=== PATIENT | male | born 1945 | race Caucasian/White ===

== ENCOUNTER 2024-11-01 06:03 | Day surgery (SDC) | payer MEDICARE, BC, SELFPAY ==
[2024-11-01] VITALS (9 sets, daily range): BP systolic 117–147; BP diastolic 46–82; PULSE 55–77; RESP 16–20; TEMP 35.9–36.6; O2SAT 92–98; BMI 25.2
[2024-11-01] MEDS: LACTATED RINGERS 1000 ML 1,000 ML 100 ML IV (07:10)
--- NOTE | 2024-11-01 07:38 | W.PM.H&PU ---
History & Physical Update History & Physical Update H&P Reviewed and patient assessed: No changes noted
--- NOTE | 2024-11-01 07:45 | P.GSOP_ITS ---
Operative Note Date of procedure: 11/01/24 Pre-op diagnosis: Left inguinal hernia Post-op diagnosis: Same Type of Procedure: Open left inguinal hernia repair with mesh Indications: The patient is a 79-year-old male who has noted a left inguinal hernia that has become increasingly painful over the past year. He has a history of an open rig ht inguinal hernia repair, done after prostatectomy in 2013. After discussion of options, he elected to proceed with repair. Procedure Description: After discussing the risks and benefits of the procedure, the patient signed informed consent.? The operative site was marked and the patient was brought to the operating room and placed on the operating table in supine position.? Care was taken to pad the patient's pressure points.?? The patient was then given sedation by anesthesia.?? The operative site was then prepped and draped in the usual sterile fashion.? A time-out was then performed. Local anesthetic was injected into the skin and subcutaneous tissue overlying the inguinal canal. An ilioinguinal nerve block was performed. An oblique incision was made over the external ring. Dissection was carried down into the subcutaneous tissue using cautery until the external oblique fascia was encountered. This was cleared off. The external ring was identified and after injection of more local anesthetic, the external oblique was incised using a knife. This was extended using the Metzenbaum scissors with care to dissect the underlying cord structures away from the fascia before cutting. The ileal inguinal nerve was dissected away from the cord carefully. The cord was cleared from the inside of the inguinal canal and looped with a Crystal drain. An indirect inguinal hernia was identified. The hernia sac was dissected off of the cord structures. The sac was then ligated and the proximal and reduced into the abdomen. A small cord lipoma was ligated and divided as well. This was discarded. A piece of polypropylene mesh was obtained and cut to size. This was secured to the pubic tubercle using to 0 Prolene on a double-armed suture. The Prolene was run along the inguinal ligament inferiorly and along the transversalis fascia superiorly, securing the tails around the cord and re- creating the internal ring. The ring was just large enough to permit my fingertip. The wound was examined for hemostasis which was found to be adequate. The external oblique fascia was then reapproximated with absorbable suture. The wound was then closed in layers including Aviva's fascia and the dermis with absorbable suture. The skin was then closed with a running subcuticular suture. Glue was then applied. Instrument, sponge, and needle counts were correct at the end of the case. The patient was woken and taken to the PACU in stable condition. The patient tolerated the procedure well ? Findings: Small cord lipoma and indirect inguinal hernia found Implants: Bard soft mesh Anesthesia: MAC Surgeon: Amber Kemp MD Estimated blood loss (mL): 5 Condition: stable Disposition: same day
[2024-11-01] MEDS: BUPIVACAINE 0.5% 30 ML INJECTION (07:57)
[2024-11-01] MEDS: LIDOCAINE 1 % PF 30 ML INJECTION (07:57)
--- NOTE | 2024-11-01 08:41 | P.ANES_ITS ---
Anesthesia Charges Start Date/Time Anesthesia Start Date: 11/01/24 Anesthesia Start Time: 07:33 Stop Date/Time Anesthesia Stop Date: 11/01/24 Anesthesia Stop Time: 09:14 Summary Extremes of Age - Over 70 or under 1: MDA Coding CPT Codes CPT Codes: ANESTH REPAIR OF HERNIA - 10755 ([id number]) P2 - PATIENT W/MILD SYST DISEASE, QK - COMBINATION WINDOW INSTALLER 2-4 CNCRNT ANES PROC, QX - BORING MACHINE SET UP OPERATOR JIG SVC W/ MD MED DIRECTION Additional Codes: Summary - Extremes of Age - Over 70 or under 1: MDA ([id number])
--- NOTE | 2024-11-01 08:41 | W.ANESCHARGE ---
Anesthesia Charges Start Date/Time Anesthesia Start Date: 11/01/24 Anesthesia Start Time: 07:33 Stop Date/Time Anesthesia Stop Date: 11/01/24 Anesthesia Stop Time: 09:14 Summary Extremes of Age - Over 70 or under 1: MDA Coding CPT Codes CPT Codes: ANESTH REPAIR OF HERNIA - 86574 ([id number]) P2 - PATIENT W/MILD SYST DISEASE, QK - CARGO SURVEYOR 2-4 CNCRNT ANES PROC, QX - AUTOMOTIVE DRIVABILITY TECHNICIAN SVC W/ MD MED DIRECTION Additional Codes: Summary - Extremes of Age - Over 70 or under 1: MDA ([id number])
--- NOTE | 2024-11-01 09:25 | P.ANES_ITS ---
Anesthesia Charges Start Date/Time Anesthesia Start Date: 11/01/24 Anesthesia Start Time: 07:33 Stop Date/Time Anesthesia Stop Date: 11/01/24 Anesthesia Stop Time: 09:14 Summary Extremes of Age - Over 70 or under 1: HAND TAPPER Coding CPT Codes CPT Codes: ANESTH REPAIR OF HERNIA - 68896 ([id number]) P2 - PATIENT W/MILD SYST DISEASE, QK - INSTRUCTIONAL DESIGN CONSULTANT 2-4 CNCRNT ANES PROC, QX - HAND TAPPER SVC W/ MD MED DIRECTION Additional Codes: Summary - Extremes of Age - Over 70 or under 1: HAND TAPPER ([id number])
--- NOTE | 2024-11-01 09:25 | W.ANESCHARGE ---
Anesthesia Charges Start Date/Time Anesthesia Start Date: 11/01/24 Anesthesia Start Time: 07:33 Stop Date/Time Anesthesia Stop Date: 11/01/24 Anesthesia Stop Time: 09:14 Summary Extremes of Age - Over 70 or under 1: TRANSMISSION MECHANIC Coding CPT Codes CPT Codes: ANESTH REPAIR OF HERNIA - 94769 ([id number]) P2 - PATIENT W/MILD SYST DISEASE, QK - STUDENT SERVICES DEAN 2-4 CNCRNT ANES PROC, QX - TRANSMISSION MECHANIC SVC W/ MD MED DIRECTION Additional Codes: Summary - Extremes of Age - Over 70 or under 1: TRANSMISSION MECHANIC ([id number])
[2024-11-01] MEDS: HYDROCODONE-ACETAMIN 5-325 MG 1 TAB PO (10:18)
== END 2024-11-01 10:50 | disposition home or self-care (01) ==
PROVIDERS: PCP Family Medicine; Visit Provider Surgery
PROC: (CPT 49505; principal; 2024-11-01 07:30)
DX: K40.90 Unilateral inguinal hernia, without obstruction or gangrene, not specified as recurrent (principal)
CPT/HCPCS: 49505; 00830; 99100; A9270; C1781; J0665; J0690; J1100; J2003; J2405; J2704; J3010; J7120